=== PATIENT | female | born 1965 | race Caucasian/White ===

== ENCOUNTER 2018-11-04 10:10 | Emergency (ER) | payer OTHER ==
[~2018-11-04] VITALS: Ht 154.9 cm; Wt 68.0 kg
[2018-11-04] MEDS ORDERED: FAMOTIDINE 20 MG/2 ML VIAL IV ONE (10:33)
[2018-11-04] MEDS ORDERED: SODIUM CHLORIDE 0.9% 1000ML 1,000 ML IV STA (10:33)
[2018-11-04] MEDS ORDERED: ONDANSETRON HCL INJ 2MG/ML 2ML 2 MG/ML VIAL IV ONE (10:33)
[2018-11-04] MEDS ORDERED: DICYCLOMINE HCL 20 MG/2 ML VIAL IM ONE (10:45)
[2018-11-04 10:57] LABS: BASOPHILS % 0.3 % (0.0-1.0); BILIRUBIN,URINE SMALL (NEGATIVE); CLARITY,URINE CLEAR (CLEAR); COLOR,URINE YELLOW (YELLOW); EOSINOPHILS % 0.1 % (0.0-6.0); HEMOGLOBIN 10.2 g/dL (12.0-16.0); KETONES,URINE 2+ (NEGATIVE); LEUKOCYTE ESTERASE ,URINE NEGATIVE (NEGATIVE); LYMPHOCYTES # (AUTO) 1.3 (1.0-3.2); LYMPHOCYTES % 17.8 % (18.0-39.1); MEAN CORPUSCULAR HEMOGLOBIN 27.2 pg (28-32); MEAN CORPUSCULAR HGB CONC 30.9 g/dL (31-35); MONOCYTES # (AUTO) 0.5 (0.2-0.8); MONOCYTES % 6.7 % (4.4-11.3); NEUTROPHILS # (AUTO) 5.5 (2.1-6.9); NEUTROPHILS % 74.8 % (38.7-80.0); NITRITE,URINE NEGATIVE (NEGATIVE); PLATELET COUNT 393 x10e3/uL (140-360); PROTEIN,URINE DIPSTICK 1+ (NEGATIVE); RED BLOOD COUNT 3.75 x10e6/uL (3.6-5.1); RED CELL DISTRIBUTION WIDTH 15.5 % (11.7-14.4); URINE UROBILINOGEN 0.2 mg/dL (0.2 - 1)
[2018-11-04 10:58] LABS: EPITHELIAL CELLS,URINE FEW /LPF; MUCUS,URINE RARE (RARE); WBC,URINE (MAN) 0-5 /HPF (0-5)
[2018-11-04 11:19] LABS: ALANINE AMINOTRANSFERASE 11 IU/L (0-55); ALBUMIN/GLOBULIN RATIO 1.1 (0.8-2.0); ALKALINE PHOSPHATASE 66 IU/L (40-150); AMYLASE 41 U/L (25-125); ANION GAP 15.2 mmol/L (8-16); BLOOD UREA NITROGEN 12 mg/dL (7-26); BUN/CREATININE RATIO 16 (6-25); CALCIUM 9.5 mg/dL (8.4-10.2); CARBON DIOXIDE 21 mmol/L (22-29); CHLORIDE 106 mmol/L (98-107); CREATININE, SERUM 0.73 mg/dL (0.57-1.11); EST GLOMERULAR FILTRATION RATE > 60 ML/MIN (60-); GLUCOSE 117 mg/dL (74-118); LIPASE 16 U/L (8-78); POTASSIUM 3.2 mmol/L (3.5-5.1); SODIUM 139 mmol/L (136-145)
--- NOTE | 2018-11-04 11:28 | NUR ---
RECEIVED BEDSIDE REPORT FROM ERIC STEPHENS
--- NOTE | 2018-11-04 11:36 | NUR ---
DR. LYN AT BEDSIDE UPDATING PATIENT ON RESULTS. AWAITING CT ABDOMEN
[2018-11-04] MEDS ORDERED: POTASSIUM CHLORIDE 20 MEQ TAB CR PO ONE (11:42)
[2018-11-04] MEDS ORDERED: SODIUM CHLORIDE 0.9% 50ML 50 ML ONE (11:45)
[2018-11-04] MEDS ORDERED: IOPAMIDOL 370 MG/ML 200 ML INFUS..BTL INJ ONE (11:45)
--- NOTE | 2018-11-04 13:17 | Diagnostic Imaging Report ---
EXAMINATION: CT of the abdomen and pelvis with contrast. TECHNIQUE: Spiral CT images of the abdomen and pelvis were performed from the lung bases to the lesser trochanters after the intravenous administration of 100 cc of Isovue 370 and the oral administration of water. Coronal and sagittal reformatted images were obtained. COMPARISON: None. CLINICAL HISTORY:Abdominal pain since last night DISCUSSION: ABDOMEN/PELVIS: LOWER THORAX:Moderate to large hiatal hernia. Lung bases are grossly clear. HEPATOBILIARY: Normal hepatic size and contour. Ill-defined 1.3 x 0.8 x 0.9 cm hypodense lesion in hepatic segment , which does not measure simple fluid (series 2, image 26). No other focal lesions. No intra or extrahepatic biliary ductal dilation. GALLBLADDER: No radio-opaque stones or sludge. No wall thickening. SPLEEN: No splenomegaly. PANCREAS: No focal masses or ductal dilatation. ADRENALS: No adrenal nodules. KIDNEYS/URETERS: Moderate bilateral caliectasis. No santosh hydronephrosis or hydroureter. No stones or solid enhancing lesions. No perinephric stranding. PELVIC ORGANS/BLADDER: Bladder is moderately distended, without focal lesions or wall thickening. Uterus is unremarkable. No adnexal masses. PERITONEUM/RETROPERITONEUM: No free air or fluid. LYMPH NODES: No intra-abdominal, retroperitoneal, pelvic or inguinal lymphadenopathy. VESSELS: The celiac trunk,superior and inferior mesenteric and bilateral renal arteries are patent The portal, superior mesenteric and splenic veins are patent. GI TRACT: No bowel dilation or evidence of obstruction. Appendix is well identified and normal in caliber. No pericolonic inflammatory changes. Scattered high density material in the colon may reflect ingestion of bismuth containing antacids, as no oral contrast was given. A few diverticula are noted in the sigmoid colon, without diverticulitis. BONES AND SOFT TISSUE: No bony destructive lesions. Bilateral fat-containing inguinal hernias, left greater than right IMPRESSION: 1. No acute abdominopelvic abnormalities. No bowel dilation or evidence of obstruction. 2. Ill-defined 1.3 cm hypodense lesion in hepatic segment , which does not measure simple fluid. Recommend nonemergent contrast enhanced MRI abdomen with liver mass protocol for further assessment. 3. Moderate to large hiatal hernia. Signed by: Dr. Job Molina M.D. on 11/04/2018 1:13 PM
== END 2018-11-04 14:09 | disposition home or self-care (01) ==
LOC: ER 10:10
DX: R10.13 Epigastric pain (principal); R11.2 Nausea with vomiting, unspecified; K44.9 Diaphragmatic hernia without obstruction or gangrene
CPT/HCPCS: 36415; 74177; 80053; 81001; 82150; 83690; 85025; 93005; 99284; J0500; J2405; J7030; Q9967